=== PATIENT | male | born 1990 | race Caucasian/White ===

== ENCOUNTER 2021-02-03 05:32 | Emergency (ER) | payer OTHER ==
[~2021-02-03] VITALS: Ht 188 cm; Wt 103.4 kg
[2021-02-03 05:54] VITALS: BP 139/86
--- NOTE | 2021-02-03 05:54 | NUR ---
TO BED AMBULATORY
--- NOTE | 2021-02-03 06:05 | NUR ---
RECEIVED IN BED 11 FROM TRIAGE WITH C/O "BOIL ON MY BUTT". RED RAISED ABSCESS NOTED NEAR COCCYX.
--- NOTE | 2021-02-03 06:10 | NUR ---
DR. DOMINGUEZ AT BEDSIDE FOR EXAM
[2021-02-03] MEDS ORDERED: LIDOCAINE/EPI 1% 1:100000 20 ML VIAL INJ ONE (06:15)
--- NOTE | 2021-02-03 07:11 | NUR ---
RECEIVED REPORT FROM MECCA AMES. TRANSFER OF CARE AT THIS TIME.
--- NOTE | 2021-02-03 07:17 | NUR ---
DR DOMINGUEZ AT BEDSIDE FOR PROCEDURE
[2021-02-03] MEDS ORDERED: SULF-58 PO (07:35)
[2021-02-03] MEDS ORDERED: NAPR-54 PO (07:35)
[2021-02-03] MEDS ORDERED: ACET-10509 PO (07:35)
[2021-02-03 07:50] VITALS: BP 139/86
--- NOTE | 2021-02-03 07:50 | NUR ---
Patient discharged with v/s stable. Written and verbal after care instructions ABOUT MEDICATION AND SKIN ABSCESS given and explained. Patient alert, oriented and verbalized understanding of instructions. Ambulatory with steady gait. All questions addressed prior to discharge. ID band removed. Patient advised to follow up with PMD. Rx of ACETAMINOPHEN, NAPROXEN, AND BACTRIM 400-80MG TAB given. Patient educated on indication of medication including possible reaction and side effects. Opportunity to ask questions provided and answered.
== END 2021-02-03 07:50 | disposition home or self-care (01) ==
LOC: MED 05:32
DX: L02.31 Cutaneous abscess of buttock (principal); Z79.899 Other long term (current) drug therapy
CPT/HCPCS: 10060; 99284; J2001